=== PATIENT | female | born 1960 | race Two or more races ===

== ENCOUNTER 2025-01-05 11:13 | Emergency (ER) | payer SELFPAY ==
[~2025-01-05] VITALS: Ht 147.3 cm; Wt 61.2 kg
[2025-01-05] MEDS: IV NS 0.9% 1,000 ML BAG IV ONE (11:45)
[2025-01-05 11:48] LABS: PLATELET COUNT (AUTO) 167 K/uL (150-450); RED BLOOD CELL COUNT(AUTO) 4.89 MIL/uL (4.0-5.2); RED CELL DISTRIBUTION WIDTH 14.5 % (11.5-15.0); WHITE BLOOD COUNT (AUTO) 4.8 K/uL (4.3-11.0)
[2025-01-05 11:55] LABS: CALCIUM, SERUM 8.7 mg/dL (8.5-10.1); CREATININE 0.7 mg/dL (0.6-1.3); SODIUM SERUM 137.0 mmol/L (136-145); UREA NITROGEN, BLOOD 8.0 mg/dL (7-18)
[2025-01-05] MEDS ORDERED: CEFTRIAXONE 1GM BAG (ER ONLY) 50 ML IV ONE (11:57)
[2025-01-05 12:00] LABS: ASPARTATE AMINOTRANSFERASE 23.0 U/L (15-37); TOTAL PROTEIN, SERUM 8.5 g/dL (6.4-8.2)
[2025-01-05] MEDS: CEFTRIAXONE 1GM BAG (ER ONLY) 50 ML IV ONE (12:00)
[2025-01-05 12:01] LABS: INR 0.99 (0.91-1.10)
[2025-01-05 12:03] LABS: LACTIC ACID 1.4 mmol/L (0.4-2.0)
[2025-01-05] MEDS ORDERED: ALBUTEROL FS 2.5 MG/3 ML VIAL.NEB ONE (12:07)
[2025-01-05] MEDS ORDERED: IPRATROPIUM NEB FS 0.5 MG/2.5 ML AMPUL.NEB ONE (12:08)
[2025-01-05] MEDS: ALBUTEROL FS 2.5 MG/3 ML VIAL.NEB CONTNEB ONE (12:15)
[2025-01-05] MEDS: IPRATROPIUM NEB FS 0.5 MG/2.5 ML AMPUL.NEB NEB ONE (12:15)
[2025-01-05 12:16] VITALS: O2SAT 98
[2025-01-05] MEDS: AZITHROMYCIN 500 MG in IV D5W 250 ML IV ONE (12:40)
[2025-01-05 12:41] VITALS: O2SAT 100
[2025-01-05] MEDS ORDERED: ACETAMINOPHEN ES 500 MG TABLET ONE (12:45)
[2025-01-05] MEDS: ACETAMINOPHEN 325 MG TABLET PO ONE (12:50)
[2025-01-05] MEDS ORDERED: ACETAMINOPHEN 325 MG TABLET ONE (12:54)
[2025-01-05 13:07] VITALS: O2SAT 100
[2025-01-05] MEDS ORDERED: ALBU18HF2 INH (13:17)
[2025-01-05] MEDS ORDERED: AMOX-430 PO (13:17)
[2025-01-05] MEDS ORDERED: PRED20TA PO (13:17)
[2025-01-05] MEDS ORDERED: AZIT250T13 PO (13:17)
[2025-01-05 13:45] VITALS: BP 125/75; TEMP 98.8; O2SAT 100
== END 2025-01-05 13:47 | disposition home or self-care (01) ==
LOC: ER 11:20
DX: J20.9 Acute bronchitis, unspecified (principal); R65.10 Systemic inflammatory response syndrome (SIRS) of non-infectious origin without acute organ dysfunction; R00.0 Tachycardia, unspecified; R50.9 Fever, unspecified; R07.89 Other chest pain; R06.2 Wheezing; Z79.52 Long term (current) use of systemic steroids; Z87.39 Personal history of other diseases of the musculoskeletal system and connective tissue
CPT/HCPCS: 99285; 96365; 71045; 96367; 96375; 93005; 84145; 85025; 80048; 87040 ×2; 83605; 80076; 36415; 85730; 94644; J2919; J0456; J0696; J7060